=== PATIENT | male | born 1990 | race Hispanic/Latino ===

== ENCOUNTER 2017-11-02 18:26 | Emergency (ER) | payer OTHER ==
[2017-11-02] MEDS: IBUPROFEN 800 MG TAB PO (20:32)
[2017-11-02] MEDS: METHOCARBAMOL 500 MG TAB PO (20:32)
== END 2017-11-02 20:33 | disposition home or self-care (01) ==
LOC: M ED 18:26
DX: S39.002A Unspecified injury of muscle, fascia and tendon of lower back, initial encounter (principal); X50.0XXA Overexertion from strenuous movement or load, initial encounter; Y92.018 Other place in single-family (private) house as the place of occurrence of the external cause
CPT/HCPCS: 99283